=== PATIENT | female | born 1945 | race Caucasian/White ===

== ENCOUNTER → 2017-10-07 | Outpatient (CLI) | payer MEDICARE, OTHER | LOC: M WHC 09:54 | DX: Z12.31 Encounter for screening mammogram for malignant neoplasm of breast (principal); Z13.820 Encounter for screening for osteoporosis; Z78.0 Asymptomatic menopausal state | CPT/HCPCS: 77067 ==

== ENCOUNTER → 2020-04-27 | Outpatient (CLI) | payer MEDICARE, OTHER ==
--- NOTE | 2020-04-27 10:59 | REPMRS ---
Patient History The patient states she has not had a clinical breast exam in over a year. Family history of breast cancer at age 50 or over in maternal grandmother. Took unspecified hormones for 3 years. 3D TOMOSYNTHESIS WAS PERFORMED. The Joselyn Elise lifetime risk for breast cancer is 6.7%. CHEYENNE Farnkel. Digital Woman Screen Mammo: April 27, 2020 - Exam #: [id number] Bilateral CC and MLO view(s) were taken. Technologist: Unique Gonzalez, Technologist Prior study comparison: October 07, 2017, digital woman screen mammo performed at [facility]. June 11, 2016, digital woman screen mammo performed at [facility]. FINDINGS: The breast tissue is heterogeneously dense. This may lower the sensitivity of mammography. There has been no change in the appearance of the mammogram from the prior studies. There is a moderate amount of residual fibroglandular tissue which is fairly symmetric. There is no interval development of dominant mass, areas of architectural distortion, or clustered microcalcification typical of malignancy. Assessment: BI-RADS/ACR category 1 mammogram. Negative Mammogram. Recommendation Routine screening mammogram in 1 year (for women over age 40). This mammogram was interpreted with the aid of an FDA-approved computer-aided dectection system. Electronically Signed By: Russell Cody MD 04/27/20 [id number]
--- NOTE | 2020-05-01 15:51 | DEXA ---
AP SPINE L1 - L4 1.292 0.8 2.5 LT FEMUR TOTAL 0.884 -1.0 0.7 LT NECK 0.788 -1.8 0.1 RT FEMUR TOTAL 0.854 -1.2 0.4 RT NECK 0.828 -1.5 0.3 TOTAL BODY TOTAL OTHER COMMENTS: Normal bone densitometry of the spine. There is low bone density of the hips. The density of the spine has increased 1.8% since the initial exam on 06/20/2009. The decreased 5.4% since the most recent exam on 10/07/2017. The density of the left hip has increased 2.0% since the most recent exam on 06/20/2009. The density of the left hip has increased 1.8% since the most recent exam on 10/07/2017. The density of the right hip has decreased 2.2% since the initial exam on 06/20/2009. The density of the right hip has decreased 1.6% since the most recent exam on 10/07/2017. FOLLOW-UP: Recommendation for the next bone density exam: 2 years. ARIAND
== END ==
LOC: M WHC 09:29
PROVIDERS: ATTEND Internal Medicine
DX: Z12.31 Encounter for screening mammogram for malignant neoplasm of breast (principal); M85.851 Other specified disorders of bone density and structure, right thigh; M85.852 Other specified disorders of bone density and structure, left thigh

== ENCOUNTER → 2022-11-01 | Outpatient (CLI) | payer MEDICARE, OTHER | LOC: M WUC 10:17 | PROVIDERS: ATTEND Physician Assistant | DX: M19.031 Primary osteoarthritis, right wrist (principal); M19.041 Primary osteoarthritis, right hand; W10.1XXA Fall (on)(from) sidewalk curb, initial encounter ==

== ENCOUNTER → 2023-05-12 | Outpatient (CLI) | payer MEDICARE, OTHER ==
[~2023-05-12] MED LIST: AMLO2.5T3 PO; ASCO500C3 PO; ATOR1TAB19 PO; CVS1CAP2 PO; LEVOTAB10 PO; OMEGCAP4 PO; SERT50TA29 PO; THERTAB52 PO; VITA100093 PO
== END ==
LOC: M WHC 14:34
PROVIDERS: ATTEND Obstetrics & Gynecology
DX: M85.851 Other specified disorders of bone density and structure, right thigh (principal); M85.852 Other specified disorders of bone density and structure, left thigh; Z13.820 Encounter for screening for osteoporosis

== ENCOUNTER → 2023-05-12 | Outpatient (CLI) | payer MEDICARE, OTHER | LOC: M WHC 13:01 | PROVIDERS: ATTEND Obstetrics & Gynecology | DX: Z12.31 Encounter for screening mammogram for malignant neoplasm of breast (principal) ==

== ENCOUNTER → 2023-09-30 | Outpatient (REF) | payer MEDICARE, OTHER ==
[2023-09-30 17:44] LABS: RSV AMPLIFICATION NEGATIVE (NEGATIVE)
== END ==
LOC: M LAB REF 16:25
PROVIDERS: ATTEND Nurse Practitioner Family
DX: R53.83 Other fatigue (principal); R05.9 Cough, unspecified

== ENCOUNTER → 2024-06-01 | Outpatient (CLI) | payer MEDICARE, OTHER | LOC: M WHC 13:31 | PROVIDERS: ATTEND Internal Medicine | DX: Z12.31 Encounter for screening mammogram for malignant neoplasm of breast (principal); R92.333 Mammographic heterogeneous density, bilateral breasts ==

== ENCOUNTER → 2025-06-27 | Outpatient (CLI) | payer MEDICARE, OTHER | LOC: M WHC 10:37 | PROVIDERS: ATTEND Internal Medicine | DX: Z12.31 Encounter for screening mammogram for malignant neoplasm of breast (principal); R92.323 Mammographic fibroglandular density, bilateral breasts ==